=== PATIENT | female | born 2000 | race Two or more races ===

== ENCOUNTER 2021-03-29 09:09 | Inpatient (IN) | payer MEDICAID ==
[~2021-03-29] VITALS: Ht 157.5 cm; Wt 65.8 kg
--- NOTE | 2021-03-29 09:14 | NUR ---
BIBS C/O MID ABDOMINAL PAIN SINCE LAST NIGHT 01/17 ON PS. PT STATED SHE WAS NASEOUS AND VOMITING LAST NIGHT. VITALS ARE WITHIN NORMAL LIMITS. BREATHING IS VEEN AND UNLABORED. PT ATTCHED TO MONITOR AND UNABLE TO PROVIDE URINE AT THIS TIME.
--- NOTE | 2021-03-29 09:16 | NUR ---
DR ALVAREZ AT BEDSIDE
--- NOTE | 2021-03-29 09:19 | NUR ---
IV ESTABLISHED R AC 20G. LABS WERE DRAWN AND COLLECTED AT BEDSIDE.
[2021-03-29] MEDS ORDERED: ONDANSETRON HCL/PF 4 MG/2 ML VIAL IVP ONE (09:30)
[2021-03-29] MEDS ORDERED: IV NS 0.9% 500 ML BAG IV ONE (09:30)
[2021-03-29] MEDS ORDERED: MORPHINE SULFATE INJ 2 MG/ML DISP.SYRIN IV ONE ×2 (09:30→12:30)
[2021-03-29] MEDS ORDERED: ONDANSETRON HCL/PF 4 MG/2 ML VIAL ONE (09:45)
[2021-03-29] MEDS ORDERED: MORPHINE SULFATE INJ 2 MG/ML DISP.SYRIN ONE ×2 (09:46→12:17)
[2021-03-29 09:51] LABS: BASOPHILS % (AUTO) 0.2 % (0.0-2.0); HEMATOCRIT 42 % (33-45); HEMOGLOBIN 14.7 g/dL (11.5-14.8); LYMPHOCYTES # (AUTO) 1.2 K/uL (0.8-4.8); LYMPHOCYTES % (AUTO) 6.8 % (20.0-44.0); MEAN CORPUSCULAR HGB CONC 35 g/dl (31.0-36.0); MEAN CORPUSCULAR VOLUME 90 fL (82-100); MONOCYTES # (AUTO) 0.4 K/uL (0.1-1.30); MONOCYTES % (AUTO) 2.3 % (2.0-12.0); NEUTROPHILS # (AUTO) 16.7 K/uL (1.8-8.9); NEUTROPHILS % (AUTO) 90.7 % (43.0-81.0); PLATELET COUNT (AUTO) 334 K/uL (150-450); RED BLOOD CELL COUNT(AUTO) 4.72 MIL/uL (4.0-5.2); WHITE BLOOD COUNT (AUTO) 18.4 K/uL (4.3-11.0)
--- NOTE | 2021-03-29 10:07 | NUR ---
ULTRASOUND AT BEDSIDE
[2021-03-29 10:15] LABS: ALBUMIN 4.1 g/dL (3.4-5.0); BILIRUBIN,DIRECT 0.1 mg/dL (0.0-0.2); CALCIUM, SERUM 9.3 mg/dL (8.5-10.1); CREATININE 0.8 mg/dL (0.6-1.3); POTASSIUM 3.7 mmol/L (3.5-5.1); TOTAL PROTEIN, SERUM 8.1 g/dL (6.4-8.2)
[2021-03-29 10:29] LABS: BILIRUBIN,TOTAL 0.2 mg/dL (0.2-1.0)
--- NOTE | 2021-03-29 10:43 | NUR ---
URINE COLLECTED AND SENT
[2021-03-29 11:32] LABS: BILIRUBIN,URINE NEGATIVE (NEGATIVE); COLOR,URINE YELLOW (YELLOW); LEUKOCYTE ESTERASE ,URINE NEGATIVE (NEGATIVE); NITRITE, URINE NEGATIVE (NEGATIVE); PH,URINE 7.5 (5.0-8.0); PROTEIN,URINE NEGATIVE (NEGATIVE); UGLUCOSE NEGATIVE (NEGATIVE); UROBILINOGEN,URINE 0.2 EU/dL (0.2)
[2021-03-29 11:38] LABS: BACTERIA,URINE Rare /HPF (None Seen); RBC,URINE 0-2 /HPF (0-2); SQUAMOUS EPITHELIAL CELL,UR Few /HPF (None Seen); WBC,URINE 0-2 /HPF (0-3)
--- NOTE | 2021-03-29 11:52 | NUR ---
PT TAKEN TO CT
--- NOTE | 2021-03-29 11:58 | NUR ---
PT BACK FROM CT
--- NOTE | 2021-03-29 12:08 | NUR ---
DR ALVAREZ AT BEDSIDE
[2021-03-29] MEDS ORDERED: PIPERACILLIN /TAZOBACTAM 3.375 G VIAL IV ONE (12:12)
--- NOTE | 2021-03-29 12:15 | NUR ---
COVID SWAB DONE AND SENT
[2021-03-29] MEDS ORDERED: PIPERACILLIN /TAZOBACTAM 3.375 G in IV D5W 50 ML IV ONE (12:30)
--- NOTE | 2021-03-29 14:44 | NUR ---
REPORT GIVEN TO NURSE POLO FOR MARV
[2021-03-29 15:00] VITALS: BP 100/64
--- NOTE | 2021-03-29 15:00 | NUR ---
MS RN ADMITTING NOTES RECEIVED PATIENT FROM [facility]. PATIENT IS AWAKE, A&O X 4, ABLE TO MAKE NEEDS KNOWN. PATGIENT IS AMBULATORY. PATIENT ABLE TO WALK FROM [facility] TO BED. ON ROOM AIR, TOLERATING WELL. IN NO ACUTE DISTRESS NOTED. NO COMPLAINTS OF PAIN AT THIS TIME. IV ACCESS ON RIGHT AC G#20, STARTED AN IV FLUID OF NS 1L X 75 CC/HR, INFUSING WELL, NO S/SX OF INFILTRATION NOTED. REINFORCED NPO. SAFETY PRECAUTIONS IN PLACE. BED ON LOWEST LOCKED POSITION, SIDE RAILS UP X 2, CALL LIGHT WITHIN EASY REACH. WILL CONTINUE TO MONITOR ACCORDINGLY.
--- NOTE | 2021-03-29 15:03 | NUR ---
RN NOTES PATIENT IS FOR LAP APPENDECTOMY POSSIBLE OPEN PROCEDURE BY DR. LAY. CONSENT SECURED. PRE OP CHECKLIST PROPERLY FILLED UP AND FILED TO CHART.
[2021-03-29] MEDS ORDERED: MORPHINE SULFATE INJ 2 MG/ML DISP.SYRIN IV PRN (15:30)
[2021-03-29] MEDS ORDERED: IV NS 0.9% 1,000 ML IV PRN (15:30)
[2021-03-29] MEDS ORDERED: ACETAMINOPHEN 325 MG TABLET PO PRN (15:30)
[2021-03-29] MEDS ORDERED: ONDANSETRON HCL/PF 4 MG/2 ML VIAL IVP PRN (15:30)
[2021-03-29] MEDS ORDERED: LIDOCAINE 1% INJ 50 ML MDV IJ ONE (15:46)
[2021-03-29] MEDS ORDERED: ANESTHESIA TRAY IN PYXIS 1 EA TRAY MC ONE (15:46)
[2021-03-29] MEDS ORDERED: BUPIVACAINE MPF W/EPI 0.25% 30 ML VIAL ONE (15:46)
[2021-03-29 16:00] VITALS: BP 100/64
--- NOTE | 2021-03-29 16:25 | NUR ---
RN NOTES MRSA SWAB DONE, INFORMED LAB REGARDING SPECIMEN.
[2021-03-29] MEDS ORDERED: FENTANYL PF 100MCG/2ML AMPUL ONE (16:41)
[2021-03-29] MEDS ORDERED: ROCURONIUM BROMIDE 50 MG/5 ML ONE (16:42)
[2021-03-29] MEDS ORDERED: MIDAZOLAM HCL 2 MG/2ML VIAL ONE (16:42)
--- NOTE | 2021-03-29 16:45 | NUR ---
RN NOTES PATIENT WAS PICKED UP BY [facility] STAFF. LEFT UNIT INSTABLE CONDITION.
[2021-03-29] MEDS: ZOSYN IVPB 3.375 G in IV D5W 50ml IV SCH ×2 (16:46→23:37)
[2021-03-29] MEDS ORDERED: BACITRACIN ZINC OINT PACKET 1 EA PACKET TP ONE (17:47)
--- NOTE | 2021-03-29 18:51 | NUR ---
MS RN NOTES RECEIVED PATIENT FORM RECOVERY ROOM VIA BED, ACCOMPANIED BY CELESTINA NAIR. PATIENT IS AWAKE, ALERT AND ORIENTED X 4. ON ROOM AIR SATURATING WELL, NO S/SX OF ACUTE DISTRESS NOTED. IV ACCESS ON RAC ONGOING LR 1 L X 150 CC/HR, INFUSING WELL, NO S/SX OF INFILTRATION NOTED. ON NPO EXCEPT MEDS, CLEAR LIQUIDS IN AM. NO COMPLAINTS OF PAIN AT THIS TIME. SURGICAL SITE NOTED WITH DRY AND INTACT DRESSING. SAFETY PRECAUTIONS IN PLACE: BED ON LOWEST GINO POSITION, SIDE RAILS UP X 2. CALL LIGHT WITHIN EASY REACH. WILL ENDORSE TO ONCOMING SHIFT FOR MARV.
--- NOTE | 2021-03-29 19:13 | NUR ---
MS RN OPENING NOTES RECEIVED PATIENT AWAKE IN BED. A/O X4. PATIENT STABLE ON ROOM AIR. NO SOB OR S/S OF RESPIRATORY DISTRESS NOTED. IV ACCESS ON RAC RUNNING LR 150 ML/HR, INFUSING WELL, NO S/S OF INFILTRATION NOTED. NO COMPLAINTS OF PAIN AT THIS TIME. SURGICAL SITE NOTED WITH DRY AND INTACT DRESSING. SAFETY PRECAUTIONS IN PLACE: BED ON LOWEST LOCKED POSITION, HOB ELEVATED, SIDE RAILS UP X 2, CALL LIGHT AND TABLE WITHIN REACH. WILL CONTINUE TO MONITOR.
[2021-03-29 20:00] VITALS: BP 105/63
[2021-03-29] MEDS: IBUPROFEN 400 MG TABLET PO SCH (20:13)
[2021-03-29] MEDS: ACETAMINOPHEN 325 MG TABLET PO SCH (20:13)
[2021-03-29] MEDS: GABAPENTIN 300 MG CAPSULE PO SCH (20:14)
[2021-03-30] MEDS: IV LR 1000 ML 1,000 ML IV PRN ×3 (04:30→23:04)
[2021-03-30] MEDS: GABAPENTIN 300 MG CAPSULE PO SCH ×3 (04:50→20:46)
[2021-03-30] MEDS: ACETAMINOPHEN 325 MG TABLET PO SCH ×3 (04:51→20:46)
[2021-03-30] MEDS: IBUPROFEN 400 MG TABLET PO SCH ×3 (04:51→20:46)
[2021-03-30] MEDS: ZOSYN IVPB 3.375 G in IV D5W 50ml IV SCH ×4 (05:55→23:34)
--- NOTE | 2021-03-30 06:30 | NUR ---
MS RN CLOSING NOTES PATIENT AWAKE IN BED. A/O X4. PATIENT STABLE ON ROOM AIR. NO SOB OR S/S OF RESPIRATORY DISTRESS NOTED. IV ACCESS ON RAC RUNNING LR 150 ML/HR, INFUSING WELL, NO S/S OF INFILTRATION NOTED. NO COMPLAINTS OF PAIN AT THIS TIME. SURGICAL SITE NOTED WITH DRY AND INTACT DRESSING. NO S/S OF BLEEDING AT THIS TIME. ALL NEEDS MET AT THIS TIME. SAFETY PRECAUTIONS IN PLACE AT ALL TIMES: BED ON LOWEST LOCKED POSITION, HOB ELEVATED, SIDE RAILS UP X 2, CALL LIGHT AND TABLE WITHIN REACH. WILL ENDORSE TO ONCOMING NURSE FOR MARV.
[2021-03-30 06:51] LABS: HEMATOCRIT 38 % (33-45); HEMOGLOBIN 12.8 g/dL (11.5-14.8); LYMPHOCYTES # (AUTO) 1.3 K/uL (0.8-4.8); LYMPHOCYTES % (AUTO) 9.4 % (20.0-44.0); MEAN CORPUSCULAR HGB CONC 34 g/dl (31.0-36.0); MEAN CORPUSCULAR VOLUME 91 fL (82-100); MONOCYTES # (AUTO) 0.5 K/uL (0.1-1.30); MONOCYTES % (AUTO) 3.4 % (2.0-12.0); NEUTROPHILS # (AUTO) 12.5 K/uL (1.8-8.9); NEUTROPHILS % (AUTO) 87.2 % (43.0-81.0); PLATELET COUNT (AUTO) 319 K/uL (150-450); RED BLOOD CELL COUNT(AUTO) 4.15 MIL/uL (4.0-5.2); WHITE BLOOD COUNT (AUTO) 14.3 K/uL (4.3-11.0)
[2021-03-30 07:37] LABS: CALCIUM, SERUM 8.4 mg/dL (8.5-10.1); CREATININE 0.7 mg/dL (0.6-1.3); MAGNESIUM 2.2 mg/dL (1.8-2.4); PHOSPHORUS 4.4 mg/dL (2.5-4.9)
--- NOTE | 2021-03-30 07:56 | NUR ---
RN MS NOTES PT IN BED, AWAKE, ALERT AND ORIENTED, NO COMPLAINT OF PAIN OR ANY DISCOMFORT, RESPIRATIONS NORMAL, CALL LIGHT WITHIN REACH, IV FLUIDS INFUSING WELL, FAMILY AT BEDSIDE.
[2021-03-30 08:00] VITALS: BP 96/63
--- NOTE | 2021-03-30 11:25 | NUR ---
RN MS NOTES PT SEEN AND EXAMINED BY DR. LOMAS, PLAN OF CARE DISCUSSED WITH PT AND FAMILY, VERBALIZED UNDERSTANDING, PT AMBULATES INDEPENDENTLY INSIDE HER ROOM, DENIES PAIN, AWAITING FOR DISCHARGE CLEARANCE FROM SURGERY.
[2021-03-30 16:00] VITALS: BP 100/54
--- NOTE | 2021-03-30 18:16 | NUR ---
RN MS NOTES PT IN BED, AWAKE, ALERT AND ORIENTED, DENIES PAIN, NOT IN DISTRESS, DIET ADVANCED TOLERATED, AMBULATES TO THE BATHROOM NEEDED, PER DR. LAY, PT TO CONTINUE WITH IV ATB AND ORDERED CBC IN AM, NOTED AND CARRIED OUT.
--- NOTE | 2021-03-30 19:30 | NUR ---
MS RN OPENING NOTE PATIENT AWAKE IN BED WITH FAMILY AT BEDSIDE, ALERT/ORIENTED X 4, PT ABLE TO MAKE NEEDS KNOWN. PATIENT STABLE ON RA, NO S/S OF DISTRESS OR SOB NOTED, BREATHING EVEN AND UNLABORED. PT DENIES PAIN AT THIS TIME. IV ACCESS ON RIGHT AC #20G INTACT AND RUNNING LR @ 150ML/HR. ABDOMINAL SURGICAL DRESSINGS CLEAN, DRY AND INTACT. SAFETY MEASURES IN PLACE: CALL LIGHT WITHIN REACH, SIDE RAILS UP X 2, BED LOCKED IN LOW POSITION, HOB ELEVATED, BED ALARM ON. WILL CONTINUE TO MONITOR PATIENT
[2021-03-30 20:14] VITALS: BP 105/58
[2021-03-31] MEDS: GABAPENTIN 300 MG CAPSULE PO SCH (05:54)
[2021-03-31] MEDS: ACETAMINOPHEN 325 MG TABLET PO SCH (05:55)
[2021-03-31] MEDS: ZOSYN IVPB 3.375 G in IV D5W 50ml IV SCH (05:55)
[2021-03-31] MEDS: IBUPROFEN 400 MG TABLET PO SCH (05:55)
[2021-03-31] MEDS: IV LR 1000 ML 1,000 ML IV PRN (05:56)
[2021-03-31 06:28] LABS: BASOPHILS % (AUTO) 0.2 % (0.0-2.0); EOSINOPHILS % (AUTO) 0.2 % (0.0-6.0); HEMATOCRIT 34 % (33-45); HEMOGLOBIN 11.5 g/dL (11.5-14.8); LYMPHOCYTES # (AUTO) 4.6 K/uL (0.8-4.8); LYMPHOCYTES % (AUTO) 46.6 % (20.0-44.0); MEAN CORPUSCULAR HGB CONC 34 g/dl (31.0-36.0); MEAN CORPUSCULAR VOLUME 92 fL (82-100); MONOCYTES # (AUTO) 0.7 K/uL (0.1-1.30); MONOCYTES % (AUTO) 7.2 % (2.0-12.0); NEUTROPHILS # (AUTO) 4.5 K/uL (1.8-8.9); NEUTROPHILS % (AUTO) 45.8 % (43.0-81.0); PLATELET COUNT (AUTO) 265 K/uL (150-450); RED BLOOD CELL COUNT(AUTO) 3.69 MIL/uL (4.0-5.2); WHITE BLOOD COUNT (AUTO) 9.9 K/uL (4.3-11.0)
--- NOTE | 2021-03-31 06:53 | NUR ---
MS RN CLOSING NOTE PATIENT AWAKE IN BED WATCHING TV WITH MOTHER AT BEDSIDE, ALERT/ORIENTED X 4, PT ABLE TO MAKE NEEDS KNOWN. PATIENT STABLE ON RA, NO S/S OF DISTRESS OR SOB NOTED, BREATHING EVEN AND UNLABORED. NO SIGNIFICANT CHANGES THROUGHOUT SHIFT. IV ACCESS ON RIGHT AC #20G INTACT AND RUNNING LR @ 150ML/HR. ABDOMINAL SURGICAL DRESSINGS CLEAN, DRY AND INTACT. MEDICATIONS GIVEN ORDERED, PT NEEDS MET THROUGHOUT SHIFT. SAFETY MEASURES IN PLACE: CALL LIGHT WITHIN REACH, SIDE RAILS UP X 2, BED LOCKED IN LOW POSITION, HOB ELEVATED, BED ALARM ON. WILL ENDORSE TO DAY SHIFT NURSE FOR CONTINUITY OF CARE
--- NOTE | 2021-03-31 08:04 | NUR ---
RN note Patient received in bed, AO x 4, able to responds all stimuli. Skin is warm to touch, keep clean/dry. Patient denies pain or discomfort at this time. Patient able to reposition self. Respiratory even and unlabored on room air, no SOB observed. Call light within reach, kept elevated HOB and lower bed position for safety. Will continue to monitor.
[2021-03-31 08:21] VITALS: BP 104/63
--- NOTE | 2021-03-31 10:00 | NUR ---
Patient d/c to home, given discharge instructions include Rx: abx, probiotic (s/e) and f/u Dr. Rivas in 1week. Patient denies pain or discomfort in stable condition. Left facility accompanied by staff to the private car. Patient refused wheel chair.
== END 2021-03-31 10:00 | disposition home or self-care (01) | DRG 710 ==
LOC: ER 09:12 → MED 14:13
PROVIDERS: ADMIT Nurse Practitioner Acute Care; ATTEND Internal Medicine
PROC: 0DTJ4ZZ Resection of Appendix, Percutaneous Endoscopic Approach (ICD-10-PCS; principal; 2021-03-29)
DX: A41.9 Sepsis, unspecified organism (principal); K35.80 Unspecified acute appendicitis; Z20.822 Contact with and (suspected) exposure to COVID-19; K38.1 Appendicular concretions
CPT/HCPCS: 36415; 76705-TC; 80048-TC; 80061-TC; 80076-TC; 81001; 83690-TC; 83735-TC; 83880; 84100-TC; 84703-TC; 85025-TC; 85610-TC; 85730-TC; 86850-TC; 87070-TC; 87075-TC; 87081-TC; 88304-TC; A6403; C9803; G0378; J0330; J1100; J1885; J2250; J2270; J2405; J2543; J2704; J3010; J3490; J7030; J7060; J7120

== ENCOUNTER 2022-02-23 17:42 | Emergency (ER) | payer MEDICAID ==
[~2022-02-23] VITALS: Ht 157.5 cm; Wt 68.0 kg
[2022-02-23 17:52] VITALS: BP 112/74
--- NOTE | 2022-02-23 17:55 | NUR ---
C/O PERSISTENT LOWER BACK PAIN X 1 MONTH,DENIES ANY TRAUMA
--- NOTE | 2022-02-23 19:05 | NUR ---
REC'D REPORT FROM CELESTINA JOHNSON FOR MARV
--- NOTE | 2022-02-23 19:15 | NUR ---
URINE SAMPLE OBTAINED SENT TO LAB
[2022-02-23] MEDS ORDERED: IBUP-1955 PO (20:19)
== END 2022-02-23 20:41 | disposition home or self-care (01) ==
LOC: ER 18:05
DX: M54.50 Low back pain, unspecified (principal); Z79.1 Long term (current) use of non-steroidal anti-inflammatories (NSAID)
CPT/HCPCS: 72110-TC; 84703-TC